=== PATIENT | male | born 1945 | race Caucasian/White ===

== ENCOUNTER 2023-05-24 08:17 | Outpatient (CLI) | payer MEDICARE, OTHER, SELFPAY | END 2023-05-24 08:18 | disposition home or self-care (01) | PROVIDERS: PCP Internal Medicine; Visit Provider Surgery | DX: I83.018 Varicose veins of right lower extremity with ulcer other part of lower leg (principal); I83.028 Varicose veins of left lower extremity with ulcer other part of lower leg; L97.811 Non-pressure chronic ulcer of other part of right lower leg limited to breakdown of skin; L97.821 Non-pressure chronic ulcer of other part of left lower leg limited to breakdown of skin; I89.0 Lymphedema, not elsewhere classified; E11.40 Type 2 diabetes mellitus with diabetic neuropathy, unspecified; Z79.4 Long term (current) use of insulin; Z79.84 Long term (current) use of oral hypoglycemic drugs | CPT/HCPCS: 97602; 99213 ==

== ENCOUNTER 2023-05-26 13:59 | Outpatient (CLI) | payer MEDICARE, OTHER, SELFPAY | END 2023-05-26 14:00 | disposition home or self-care (01) | LOC: WOUND 13:59 | PROVIDERS: PCP Internal Medicine; Visit Provider Surgery | DX: I83.028 Varicose veins of left lower extremity with ulcer other part of lower leg (principal); L97.812 Non-pressure chronic ulcer of other part of right lower leg with fat layer exposed; L97.822 Non-pressure chronic ulcer of other part of left lower leg with fat layer exposed | CPT/HCPCS: 29581 ==

== ENCOUNTER 2023-05-29 13:41 | Outpatient (CLI) | payer MEDICARE, OTHER, SELFPAY | END 2023-05-29 13:42 | disposition home or self-care (01) | LOC: WOUND 13:41 | PROVIDERS: PCP Internal Medicine; Visit Provider Surgery | DX: I83.018 Varicose veins of right lower extremity with ulcer other part of lower leg (principal); I83.028 Varicose veins of left lower extremity with ulcer other part of lower leg; L97.812 Non-pressure chronic ulcer of other part of right lower leg with fat layer exposed; L97.822 Non-pressure chronic ulcer of other part of left lower leg with fat layer exposed | CPT/HCPCS: 29581 ==

== ENCOUNTER 2023-05-31 10:13 | Outpatient (CLI) | payer MEDICARE, OTHER, SELFPAY | END 2023-05-31 10:14 | disposition home or self-care (01) | LOC: WOUND 10:13 | PROVIDERS: PCP Internal Medicine; Visit Provider Surgery | DX: I87.311 Chronic venous hypertension (idiopathic) with ulcer of right lower extremity (principal); L97.812 Non-pressure chronic ulcer of other part of right lower leg with fat layer exposed | CPT/HCPCS: 97597; 97598 ==

== ENCOUNTER 2023-06-02 14:41 | Outpatient (CLI) | payer MEDICARE, OTHER, SELFPAY | END 2023-06-02 14:42 | disposition home or self-care (01) | PROVIDERS: PCP Internal Medicine; Visit Provider Surgery | DX: I87.313 Chronic venous hypertension (idiopathic) with ulcer of bilateral lower extremity (principal); L97.812 Non-pressure chronic ulcer of other part of right lower leg with fat layer exposed; L97.822 Non-pressure chronic ulcer of other part of left lower leg with fat layer exposed | CPT/HCPCS: 29581 ==

== ENCOUNTER 2023-06-07 08:45 | Outpatient (CLI) | payer MEDICARE, OTHER, SELFPAY | END 2023-06-07 08:46 | disposition home or self-care (01) | LOC: WOUND 08:45 | PROVIDERS: PCP Internal Medicine; Visit Provider Surgery | DX: I83.018 Varicose veins of right lower extremity with ulcer other part of lower leg (principal); L97.812 Non-pressure chronic ulcer of other part of right lower leg with fat layer exposed; I83.028 Varicose veins of left lower extremity with ulcer other part of lower leg; L97.822 Non-pressure chronic ulcer of other part of left lower leg with fat layer exposed; L97.222 Non-pressure chronic ulcer of left calf with fat layer exposed; E11.40 Type 2 diabetes mellitus with diabetic neuropathy, unspecified; Z79.4 Long term (current) use of insulin; Z79.84 Long term (current) use of oral hypoglycemic drugs | CPT/HCPCS: 97597; 97598 ==

== ENCOUNTER 2023-06-09 08:39 | Outpatient (CLI) | payer MEDICARE, OTHER, SELFPAY | END 2023-06-09 08:40 | disposition home or self-care (01) | LOC: WOUND 08:39 | PROVIDERS: PCP Internal Medicine; Visit Provider Surgery | DX: I83.018 Varicose veins of right lower extremity with ulcer other part of lower leg (principal); I83.028 Varicose veins of left lower extremity with ulcer other part of lower leg; L97.812 Non-pressure chronic ulcer of other part of right lower leg with fat layer exposed; L97.822 Non-pressure chronic ulcer of other part of left lower leg with fat layer exposed | CPT/HCPCS: 29581 ==

== ENCOUNTER 2023-06-12 11:27 | Outpatient (CLI) | payer MEDICARE, OTHER, SELFPAY | END 2023-06-12 11:28 | disposition home or self-care (01) | LOC: WOUND 11:27 | PROVIDERS: PCP Internal Medicine; Visit Provider Surgery | DX: I83.018 Varicose veins of right lower extremity with ulcer other part of lower leg (principal); I83.028 Varicose veins of left lower extremity with ulcer other part of lower leg; L97.812 Non-pressure chronic ulcer of other part of right lower leg with fat layer exposed; L97.822 Non-pressure chronic ulcer of other part of left lower leg with fat layer exposed | CPT/HCPCS: 29581 ==

== ENCOUNTER 2023-06-14 10:12 | Outpatient (CLI) | payer MEDICARE, OTHER, SELFPAY | END 2023-06-14 10:13 | disposition home or self-care (01) | LOC: WOUND 10:12 | PROVIDERS: PCP Internal Medicine; Visit Provider Surgery | DX: I83.018 Varicose veins of right lower extremity with ulcer other part of lower leg (principal); L97.812 Non-pressure chronic ulcer of other part of right lower leg with fat layer exposed; I83.028 Varicose veins of left lower extremity with ulcer other part of lower leg; L97.822 Non-pressure chronic ulcer of other part of left lower leg with fat layer exposed; I87.2 Venous insufficiency (chronic) (peripheral); E11.40 Type 2 diabetes mellitus with diabetic neuropathy, unspecified; Z79.4 Long term (current) use of insulin; Z79.84 Long term (current) use of oral hypoglycemic drugs | CPT/HCPCS: 99214 ==

== ENCOUNTER 2023-06-16 14:54 | Outpatient (CLI) | payer MEDICARE, OTHER, SELFPAY | END 2023-06-16 14:55 | disposition home or self-care (01) | PROVIDERS: PCP Internal Medicine; Visit Provider Surgery | DX: I83.018 Varicose veins of right lower extremity with ulcer other part of lower leg (principal); L97.812 Non-pressure chronic ulcer of other part of right lower leg with fat layer exposed; I83.028 Varicose veins of left lower extremity with ulcer other part of lower leg; L97.822 Non-pressure chronic ulcer of other part of left lower leg with fat layer exposed | CPT/HCPCS: 29581 ==

== ENCOUNTER 2023-06-19 11:08 | Outpatient (CLI) | payer MEDICARE, OTHER, SELFPAY | END 2023-06-19 11:09 | disposition home or self-care (01) | LOC: WOUND 11:08 | PROVIDERS: PCP Internal Medicine; Visit Provider Surgery | DX: I83.028 Varicose veins of left lower extremity with ulcer other part of lower leg (principal); L97.822 Non-pressure chronic ulcer of other part of left lower leg with fat layer exposed; I83.018 Varicose veins of right lower extremity with ulcer other part of lower leg; L97.812 Non-pressure chronic ulcer of other part of right lower leg with fat layer exposed | CPT/HCPCS: 29581 ==

== ENCOUNTER 2023-06-21 08:39 | Outpatient (CLI) | payer MEDICARE, OTHER, SELFPAY | END 2023-06-21 08:40 | disposition home or self-care (01) | LOC: WOUND 08:39 | PROVIDERS: PCP Internal Medicine; Visit Provider Surgery | DX: I83.018 Varicose veins of right lower extremity with ulcer other part of lower leg (principal); L97.812 Non-pressure chronic ulcer of other part of right lower leg with fat layer exposed | CPT/HCPCS: 97597 ==

== ENCOUNTER 2023-06-23 12:43 | Outpatient (CLI) | payer MEDICARE, OTHER, SELFPAY | END 2023-06-23 12:44 | disposition home or self-care (01) | LOC: RAD 12:44 | PROVIDERS: PCP Internal Medicine; Visit Provider Internal Medicine | DX: R60.9 Edema, unspecified (principal); I51.7 Cardiomegaly; I35.1 Nonrheumatic aortic (valve) insufficiency; E11.9 Type 2 diabetes mellitus without complications | CPT/HCPCS: 93306 ==

== ENCOUNTER 2023-06-28 09:55 | Outpatient (CLI) | payer MEDICARE, OTHER, SELFPAY | END 2023-06-28 09:56 | disposition home or self-care (01) | LOC: WOUND 09:55 | PROVIDERS: PCP Internal Medicine; Visit Provider Surgery | DX: I87.2 Venous insufficiency (chronic) (peripheral) (principal); L97.812 Non-pressure chronic ulcer of other part of right lower leg with fat layer exposed | CPT/HCPCS: 97597 ==

== ENCOUNTER 2023-06-30 12:36 | Outpatient (REF) | payer MEDICARE, OTHER, SELFPAY ==
[2023-06-30 13:55] LABS: PSA Diagnostic* 0.32 ng/mL (0.10-4.00)
== END 2023-06-30 12:37 | disposition home or self-care (01) ==
LOC: NPINS 12:36
PROVIDERS: PCP Internal Medicine; Visit Provider Urology
DX: C61 Malignant neoplasm of prostate (principal)
CPT/HCPCS: 84153

== ENCOUNTER 2023-07-05 09:03 | Outpatient (CLI) | payer MEDICARE, OTHER, SELFPAY | END 2023-07-05 09:04 | disposition home or self-care (01) | LOC: WOUND 09:04 | PROVIDERS: PCP Internal Medicine; Visit Provider Surgery | DX: I87.2 Venous insufficiency (chronic) (peripheral) (principal); E11.40 Type 2 diabetes mellitus with diabetic neuropathy, unspecified; L97.812 Non-pressure chronic ulcer of other part of right lower leg with fat layer exposed; Z79.4 Long term (current) use of insulin; Z79.84 Long term (current) use of oral hypoglycemic drugs | CPT/HCPCS: 97597 ==

== ENCOUNTER 2023-07-12 09:46 | Outpatient (CLI) | payer MEDICARE, OTHER, SELFPAY | END 2023-07-12 09:47 | disposition home or self-care (01) | LOC: WOUND 09:46 | PROVIDERS: PCP Internal Medicine; Visit Provider Surgery | DX: I87.2 Venous insufficiency (chronic) (peripheral) (principal); L97.811 Non-pressure chronic ulcer of other part of right lower leg limited to breakdown of skin; L24.A9 Irritant contact dermatitis due friction or contact with other specified body fluids; E11.40 Type 2 diabetes mellitus with diabetic neuropathy, unspecified; Z79.4 Long term (current) use of insulin; Z79.84 Long term (current) use of oral hypoglycemic drugs | CPT/HCPCS: 97597 ==

== ENCOUNTER 2023-07-19 08:51 | Outpatient (CLI) | payer MEDICARE, OTHER, SELFPAY | END 2023-07-19 08:52 | disposition home or self-care (01) | LOC: WOUND 08:51 | PROVIDERS: PCP Internal Medicine; Visit Provider Family Medicine | DX: I83.018 Varicose veins of right lower extremity with ulcer other part of lower leg (principal); L97.812 Non-pressure chronic ulcer of other part of right lower leg with fat layer exposed | CPT/HCPCS: 11042 ==

== ENCOUNTER 2023-08-02 08:14 | Outpatient (CLI) | payer MEDICARE, OTHER, SELFPAY | END 2023-08-02 08:15 | disposition home or self-care (01) | PROVIDERS: PCP Internal Medicine; Visit Provider Surgery | DX: L97.811 Non-pressure chronic ulcer of other part of right lower leg limited to breakdown of skin; I83.018 Varicose veins of right lower extremity with ulcer other part of lower leg | CPT/HCPCS: 97597 ==

== ENCOUNTER 2023-08-09 08:33 | Outpatient (CLI) | payer MEDICARE, OTHER, SELFPAY | END 2023-08-09 08:34 | disposition home or self-care (01) | LOC: WOUND 08:34 | PROVIDERS: PCP Internal Medicine; Visit Provider Surgery | DX: I83.018 Varicose veins of right lower extremity with ulcer other part of lower leg (principal); L97.811 Non-pressure chronic ulcer of other part of right lower leg limited to breakdown of skin | CPT/HCPCS: 97597 ==

== ENCOUNTER 2023-08-16 10:30 | Outpatient (CLI) | payer MEDICARE, OTHER, SELFPAY | END 2023-08-16 10:31 | disposition home or self-care (01) | PROVIDERS: PCP Internal Medicine; Visit Provider Internal Medicine | DX: I10 Essential (primary) hypertension (principal); E11.9 Type 2 diabetes mellitus without complications | CPT/HCPCS: 80053; 80061; 82043; 82570 ==

== ENCOUNTER 2023-08-23 08:31 | Outpatient (CLI) | payer MEDICARE, OTHER, SELFPAY | END 2023-08-23 08:32 | disposition home or self-care (01) | LOC: WOUND 08:31 | PROVIDERS: PCP Internal Medicine; Visit Provider Surgery | DX: I87.2 Venous insufficiency (chronic) (peripheral) (principal); L97.811 Non-pressure chronic ulcer of other part of right lower leg limited to breakdown of skin | CPT/HCPCS: 97597 ==

== ENCOUNTER 2023-08-30 08:27 | Outpatient (CLI) | payer MEDICARE, OTHER, SELFPAY | END 2023-08-30 08:28 | disposition home or self-care (01) | LOC: WOUND 08:27 | PROVIDERS: PCP Internal Medicine; Visit Provider Surgery | DX: I87.2 Venous insufficiency (chronic) (peripheral) (principal); L97.818 Non-pressure chronic ulcer of other part of right lower leg with other specified severity | CPT/HCPCS: 99212 ==

== ENCOUNTER 2023-10-17 00:53 | Emergency (ER) | payer MEDICARE, OTHER, SELFPAY ==
[2023-10-17] VITALS (23 sets, daily range): BP systolic 140; BP diastolic 108–110; PULSE 70–96; RESP 20; TEMP 35.9; O2SAT 89–98
[2023-10-17 01:46] LABS: Basophils Percent Auto 0.3 % (0.0-3.0); Eosinophils Percent Auto 0.2 % (0.0-7.0); Hematocrit 43.9 % (37.0-53.0); Hemoglobin* 14.4 gm/dL (13.5-17.5); Immature Granulocytes Pct Auto 0.3 %; Lymphocytes Percent Auto 6.1 % (20-44); Mean Corpuscular HGB Conc 33 gm/dL (32-36); Mean Corpuscular Hemoglobin 26 pg (26-34); Mean Corpuscular Volume 80 fL (80-100); Monocytes Percent Auto 4.5 % (0.0-11.0); Neutrophils Percent Auto 88.6 % (42.0-72.0); Platelet Count* 361 K/uL (140-440); RDW Coefficient of Variation % 16.3 % (11.5-15.5); Red Blood Count 5.48 m/uL (4.30-5.90); White Blood Count* 16.26 K/uL (4.50-11.00)
[2023-10-17 01:48] LABS: Slide Review Reflex No
[2023-10-17 02:01] LABS: Chloride* 100 mmol/L (96-114)
[2023-10-17 02:02] LABS: Sodium* 134 mmol/L (135-149)
[2023-10-17 02:04] LABS: Creatinine* 0.9 mg/dL (0.5-1.5); Estimated Glomerular Filt Rate 87 ml/min
[2023-10-17 02:05] LABS: Anion Gap 11 mEq/L (7-15); Blood Urea Nitrogen* 24 mg/dL (7-30); Calcium* 9.8 mg/dL (8.4-10.6); Carbon Dioxide* 23 mmol/L (20-32); Glucose* 72 mg/dL (60-115)
--- NOTE | 2023-10-17 02:14 | ED.GENADULT ---
HPI - General Adult General Date Seen: 10/17/23 Chief complaint: Chest Pain Stated complaint: a fib Time Seen by Provider: 10/17/23 01:27 History of Present Illness HPI narrative: This is a pleasant 78-year-old gentleman brought to the ER today by EMS and accompanied by his from home. He has a history of insulin-dependent type 2 diabetes. Also past history of CHF, EF 45% on echo a year 2 ago, sleep apnea, GERD, hypertension,diabetic neuropathy, history of lymphedema and diabetic ulcers ( ulcers now healed) who was brought to the ER today by EMS for evaluation of a hypoglycemic episode at home as well as atrial fibrillation on his EKG. He follows with Dr. Kaur for his diabetes care. He has been working very hard since last fall to follow a strict diet and always monitor his carb counts and keep them low. He does use Lantus 44 units at night as well as fast acting insulin with meals. It sounds like his sugars have been very tightly controlled recently. He checks his sugar every morning before he eats and he has been running in the 60s for the past several days. He was in the 60s this morning. He then checks his sugar 1 additional time during the day. He did a random blood sugar about 3 year 330 this afternoon sugar was in the 60s. He has been feeling normally. No other recent illness. No fever. No cough. No sore throat. No trouble breathing. No vomiting or diarrhea. Normal appetite. He has been eating his normal meals but has been strictly controlling his carb intake. Incidentally he has lost about 20 lb since this fall because of his strict dietary control. He did eat dinner tonight. Apparently the patient and his felt like he maybe did not eat enough. He took his normal 50 units of Humalog at 7. He then took 60 units of his Lantus at 10:45 p.m.. he normally eats a granola bar or something right after takes his Lantus. Hi Found him sitting in his easy chair unresponsive. He was holding his granola bar, but had not eat yet. She could not arouse him. She called 911. Paramedics checked sugar. Initial reading was 43. They established an IV and gave him a 200 mL bolus of D10. Sugar came up to 144. Repeat glucose EN route was down to 103. It was 93 upon arrival here. Incidentally paramedics noted that he had an irregularly irregular heart rhythm. They did EKG which showed atrial fibrillation with a normal heart rate. The patient is not having any symptoms of AFib. No palpitations. No chest pain. No recent dizzy spells. No fainting. He has no known history of AFib. He is not anticoagulated. Medical record: Echocardiogram 06/23/2023 final impressions: 1. Technically limited exam. 2. Echo contrast was administered to enhance visualization of all left ventricular segments 3. Normal left ventricular size, moderately increased wall thickness, mildly reduced global systolic function, calculated EF of 44 % 4. Right ventricular cavity size is mildly enlarged, global systolic RV function is mildly reduced. 5. Severely enlarged left atrium. 6. The aortic valve is trileaflet and sclerotic, mild stenosis and trivial regurgitation. Related Data Home Medications Medication Instructions Recorded Confirmed bicalutamide 50 mg tablet 50 mg PO DAILY 05/17/23 08/16/23 pen needle, diabetic 32 gauge x #1,200 ea 05/17/23 08/16/23 (BD Ultra-Fine Irene Pen Needle) triamcinolone acetonide 0.1 % 1 applic topical BID-TID 05/17/23 08/16/23 topical cream Previous Rx's Medication Instructions Recorded insulin glargine 100 unit/mL (3 60 unit (0.6 mL) subcut DAILY #90 06/14/23 mL) subcutaneous pen (Lantus mL Solostar U-100 Insulin) furosemide 20 mg tablet 20 mg PO DAILY edema #90 tabs 07/26/23 lancets (Accu-Chek Fastclix Lancet #100 ea 07/26/23 Drum) lisinopril 40 mg tablet 40 mg PO DAILY PRN hypertension 07/26/23 #90 tabs metformin 1,000 mg tablet 1,000 mg PO BID Diabetes #180 tabs 07/26/23 blood sugar diagnostic (Accu-Chek #100 ea 08/10/23 Nati Plus test strips) hydrochlorothiazide 50 mg tablet 50 mg PO DAILY Hypertension #90 08/21/23 tabs insulin lispro 100 unit/mL 58 unit (0.58 mL) subcut BID 08/21/23 subcutaneous pen (Humalog KwikPen Diabetes #75 mL (U-100) Insulin) apixaban 5 mg tablet (Eliquis) 5 mg PO BID #60 tabs 10/17/23 Allergies Allergy/AdvReac Type Severity Reaction Status Date / Time acetaminophen [From Vicodin] Allergy Rash Verified 10/17/23 01:01 hydrocodone [From Vicodin] Allergy Rash Verified 10/17/23 01:01 adhesive tape AdvReac Unknown Rash Verified 10/17/23 01:01 [facility] Medical History (Updated 10/17/23 @ 06:29 by Isrrael Palacios MD) Congestive heart failure ?I50.9 - Heart failure, unspecified (ICD-10) Health care directive on file ?Z78.9 - Other specified health status (ICD-10) Edema ?R60.9 - Edema, unspecified (ICD-10) History of echocardiogram ?Z92.89 - Personal history of other medical treatment (ICD-10) History of bone density study ?Z92.89 - Personal history of other medical treatment (ICD-10) History of vitamin B deficiency ?Z86.39 - Personal history of other endocrine, nutritional and metabolic disease (ICD-10) History of prostate cancer ?Z85.46 - Personal history of malignant neoplasm of prostate (ICD-10) Surgical History (Updated 05/22/23 @ 11:23 by Michelle Sheehan) History of total hip arthroplasty ?Z96.649 - Presence of unspecified artificial hip joint (ICD-10) History of radical retropubic prostatectomy (1992) ?Z90.79 - Acquired absence of other genital organ(s) (ICD-10) History of total knee arthroplasty ?Z96.659 - Presence of unspecified artificial knee joint (ICD-10) History of appendectomy ?Z90.49 - Acquired absence of other specified parts of digestive tract (ICD-10) Family History (Updated 05/22/23 @ 11:08 by Michelle Sheehan) Mother High blood pressure Diabetes Father Adverse reaction to influenza vaccine Sister High blood pressure Brother High blood pressure Social History Non-prescribed substance use: denies use Little interest or pleasure in doing things: not at all Feeling down, depressed, or hopeless: not at all Exam Narrative: Exam Narrative: Constitutional: Appears well-developed and well-nourished. Alert. Conversant. Non toxic. HENT: Head: Atraumatic. Nose: Nose normal. Mouth/Throat: Oral mucosa is clear and moist. no trismus. Pharynx normal. Tonsils symmetric. No tonsillar enlargement, erythema, or exudate. Eyes: Conjunctivae normal. EOM normal. Pupils equal, round, and reactive to light. No scleral icterus. Neck: Normal range of motion. Neck supple. No tracheal deviation present. Cardiovascular: Normal rate, irregularly irregular rhythm. No gallop. No friction rub. No murmur heard. Symmetric radial artery pulses . No JVD. Pulmonary/Chest: Effort normal. No stridor. No respiratory distress. No wheezes. No rales. No rhonchi . No tenderness. Abdominal: Soft. Bowel sounds normal. No distension. No mass. No tenderness. No rebound. No guarding. Musculoskeletal: RUE: Normal range of motion. No tenderness. No deformity LUE: Normal range of motion. No tenderness. No deformity RLE: Normal range of motion. Wearing a wrap on his lower extremity.No significant edema. No tenderness. No deformity LLE: Normal range of motion. No edema. wearing a wrap on his calf.No Significanttenderness. No deformity Neurological: Alert and oriented to person, place, and time. Normal strength. CN II-VII intact. No sensory deficit. GCS eye subscore is 4. GCS verbal subscore is 5. GCS motor subscore is 6. Normal coordination Skin: Skin is warm and dry. No rash noted. No pallor. Normal capillary refill. Psychiatric: Normal mood. Normal affect. Const: Vital Signs, click to edit/add: Vital Signs - 24 hr 10/17/23 01:01 10/17/23 01:19 10/17/23 01:30 Temperature 96.6 F L Pulse Rate 85 87 Pulse Rate [Pulse Oximeter] 90 Respiratory Rate 20 Blood Pressure [[facility]] 140/108 H Pulse Oximetry 93 92 94 Oxygen Delivery Me thod Room Air 10/17/23 01:45 10/17/23 02:00 10/17/23 02:15 Temperature Pulse Rate 95 81 89 Pulse Rate [Pulse Oximeter] Respiratory Rate Blood Pressure [[facility]] Pulse Oximetry 95 95 93 Oxygen Delivery Me thod 10/17/23 02:30 10/17/23 02:45 10/17/23 03:00 Temperature Pulse Rate 79 82 75 Pulse Rate [Pulse Oximeter] Respiratory Rate Blood Pressure [[facility] Upper [facility]] Pulse Oximetry 92 92 91 Oxygen Delivery Me thod 10/17/23 03:15 10/17/23 03:52 10/17/23 04:01 Temperature Pulse Rate 76 88 85 Pulse Rate [Pulse Oximeter] Respiratory Rate Blood Pressure [[facility] Upper Arm] Pulse Oximetry 94 96 98 Oxygen Delivery Me thod 10/17/23 04:16 10/17/23 04:30 10/17/23 04:45 Temperature Pulse Rate 96 81 92 Pulse Rate [Pulse Oximeter] Respiratory Rate Blood Pressure [[facility] Upper Arm] Pulse Oximetry 94 97 89 Oxygen Delivery Me thod 10/17/23 05:01 10/17/23 05:16 10/17/23 05:31 Temperature Pulse Rate 81 83 70 Pulse Rate [Pulse Oximeter] Respiratory Rate Blood Pressure [[facility] Upper Arm] Pulse Oximetry 97 97 97 Oxygen Delivery Me thod 10/17/23 05:45 10/17/23 06:00 10/17/23 06:15 Temperature Pulse Rate 78 85 Pulse Rate [Pulse Oximeter] Respiratory Rate Blood Pressure [[facility] Upper Arm] Pulse Oximetry 96 98 95 Oxygen Delivery Me thod 10/17/23 06:30 10/17/23 06:47 Temperature Pulse Rate 82 Pulse Rate [Pulse Oximeter] Respiratory Rate Blood Pressure [[facility] Upper Arm] 140/110 H Pulse Oximetry 98 Oxygen Delivery Me thod Course Vital Signs Vital signs: Initial Vital Signs Temperature 96.6 F L 10/17/23 01:01 Temperature Source Temporal Artery Scan 10/17/23 01:01 Pulse Rate 90 10/17/23 01:01 Respiratory Rate 20 10/17/23 01:01 Blood Pressure 140/108 H 10/17/23 01:01 Blood Pressure Mean 118 H 10/17/23 01:01 Pulse Oximetry 93 10/17/23 01:01 Oxygen Delivery Method Room Air 10/17/23 01:01 Vital Signs Temperature 96.6 F L 10/17/23 01:01 Pulse Rate 90 10/17/23 01:01 Respiratory Rate 20 10/17/23 01:01 Blood Pressure 140/108 H 10/17/23 01:01 Pulse Oximetry 93 10/17/23 01:01 Oxygen Delivery Method Room Air 10/17/23 01:01 Temperature 96.6 F L 10/17/23 01:01 Pulse Rate 82 10/17/23 06:30 Respiratory Rate 20 10/17/23 01:01 Blood Pressure 140/110 H 10/17/23 06:47 Pulse Oximetry 98 10/17/23 06:30 Oxygen Delivery Method Room Air 10/17/23 01:01 Medical Decision Making MDM Narrative Medical decision making narrative: This patient presents from home by EMS with 2 separate problems. 1. Hypoglycemia. He is a insulin-dependent type 2 diabetic. He had a blood sugar low at about 43 tonight after he took normal dose of NovoLog 50 units at 7:00 p.m. and then his normal dose of Lantus 60 units at 10:45 p.m.. It sounds like he has had some low blood sugars in the morning for the past several days. Suspect that he is doing so well with his carb counting and dieting that he probably needs to decrease his doses of insulin. He is very confident that he does not inadvertently overdoses insulin. Apparently paramedics and his feel that he did not eat inadequate supper, which may be an explanation for his hyperglycemia. He is not having any other symptoms of infection, dehydration, vomiting. However white blood cell count is 16.2. chest x-ray negative for pneumonia. No UTI symptoms. We monitored he the patient here in the ER for several hours with repeat glucose checks. Glucose remained in the normal range without any recurrent low readings. He was able to tolerate oral and is keeping her sugar up. He is comfortable going home with his and she cannot the monitor his blood sugar throughout the day. He will need outpatient follow-up with primary care to adjust his insulin dose. It sounds like he has had several readings in the 60s Recently. 2. Atrial fibrillation. Patient has no known previous history of AFib. He is in AFib based on EKGs by EMS and EKG here in the ER tonight. He is rate controlled. He is asymptomatic from the AFib. no sign of CHF, ACS.Therefore we do not know exact time of onset. This is a new detection of AFib but not necessarily new onset. Due to risk of stroke, immediate cardioversion here in the ER is contraindicated. Chads 2 Vasc score is 5, indicating need for anticoagulation for stroke prophylaxis. Echo from last fall showed enlarged left atrium, moderately low ventricular EF of 44%. Also showed dilated left atrium. He remained in rate controlled AFib during his period of observation for hypoglycemia. He remains asymptomatic. He is safe for discharge home. He will a outpatient primary care and Cardiology follow-up for ongoing management. Will initiate on Eliquis for stroke prophylaxis. He will follow-up with [facility] as soon as possible. Precautions for return to the ER Reviewed. Questions answered.. Lab Data Labs: Lab Results 10/17/23 Range/Units 01:40 WBC 16.26 H (4.50-11.00) K/uL RBC 5.48 (4.30-5.90) m/uL Hgb 14.4 (13.5-17.5) gm/dL Hct 43.9 (37.0-53.0) % MCV 80 (80-100) fL MCH 26 (26-34) pg MCHC 33 (32-36) gm/dL RDW Coeff of Clemente 16.3 H (11.5-15.5) % Plt Count 361 (140-440) K/uL Neut % (Auto) 88.6 H (42.0-72.0) % Lymph % (Auto) 6.1 L (20-44) % Posey % (Auto) 4.5 (0.0-11.0) % Eos % (Auto) 0.2 (0.0-7.0) % Baso % (Auto) 0.3 (0.0-3.0) % Neut # (Auto) 14.40 H (1.7-7.0) K/uL Lymph # (Auto) 1.00 (0.90-2.90) K/uL Posey # (Auto) 0.70 (0.00-0.90) K/UL Eos # (Auto) 0.00 (0.00-0.50) K/uL Baso # (Auto) 0.00 (0.00-0.30) K/uL Abs Immat Gran (auto) 0.00 (0.00-0.30) K/uL Imm/Tot Granulo (auto) 0.3 % Sodium 134 L (135-149) mmol/L Potassium 4.0 (3.6-5.1) mmol/L Chloride 100 (96-114) mmol/L Carbon Dioxide 23 (20-32) mmol/L Anion Gap 11 (7-15) mEq/L BUN 24 (7-30) mg/dL Creatinine 0.9 (0.5-1.5) mg/dL Estimated GFR 87 ml/min Glucose 72 (60-115) mg/dL Calcium 9.8 (8.4-10.6) mg/dL TSH 1.310 (0.270-4.200) uIU/mL Imaging Data Chest x-ray: Attestation: I have reviewed the pertinent imaging results. Radiologist's impression: IMPRESSION: No acute cardiopulmonary abnormality. ECG Data Attestation: I personally reviewed and interpreted this ECG as follows: Interpretation: Atrial fibrillation. Premature ventricular or aberrantly conducted complexes. Rate 92. WA na QRS axis Low-voltage QRS. Left axis deviation. Left anterior fascicular block. ST segment/T wave: Nonspecific T-wave flattening and inversion in V6. No ST segment elevation or depression. QTc: 445 Discharge Plan Discharge Clinical Impression: Atrial fibrillation, Hypoglycemia Patient Disposition: Home, Self-Care Condition: Stable Instructions: A-fib (Atrial Fibrillation) (ED), What to Do if Your Blood Sugar is Low (ED) Additional Instructions: for your low blood sugar: Please recheck her blood sugar again this morning and again this afternoon. Please try to eat regular food and plenty of carbs To keep her blood sugar above 80. please follow-up with your regular doctor as soon as possible to adjust your insulin doses. for atrial fibrillation: Please call [facility] at [phone] to schedule a follow-up appointment. Also please follow-up with your regular doctor, Dr. Kaur to recheck for your AFib. Please start on the blood thinning medications to minimize the risk for strokes. If the medication is too expensive, contact your doctor for a different prescription. return to the ER immediately if you have palpitations, chest pain, dizzy spells, fainting, trouble breathing, or any other concerns. Prescriptions: New Eliquis 5 mg tablet 5 mg PO BID Qty: 60 0RF No Action bicalutamide 50 mg tablet 50 mg PO DAILY (DME) pen needle, diabetic [BD Ultra-Fine Irene Pen Needle] 32 gauge x 5/32 needle See Rx Instructions .ROUTE .MEDSUPPLY Qty: 1200 Patient Comments: [NO ORIGINAL SIG] Rx Instructions: As directed triamcinolone acetonide 0.1 % cream 1 applic topical BID-TID insulin glargine [Lantus Solostar U-100 Insulin] 100 unit/mL (3 mL) insulin pen 60 unit subcut DAILY Qty: 90 1RF (DME) lancets [Accu-Chek Fastclix Lancet Drum] Misc See Rx Instructions .ROUTE BID Qty: 100 3RF Rx Instructions: As directed furosemide 20 mg tablet 20 mg PO DAILY Qty: 90 3RF lisinopril 40 mg tablet 40 mg PO DAILY PRN (Reason: hypertension) Qty: 90 3RF metformin 1,000 mg tablet 1,000 mg PO BID Qty: 180 3RF (DME) Accu-Chek Nati Plus test strp Strip See Rx Instructions .ROUTE .COMPLEX Qty: 100 7RF Dose Instruction: USE TWO TIMES A DAY Rx Instructions: USE TWO TIMES A DAY hydrochlorothiazide 50 mg tablet 50 mg PO DAILY Qty: 90 3RF insulin lispro [Humalog KwikPen Insulin] 100 unit/mL insulin pen 58 unit subcut BID Qty: 75 3RF Follow Up/Referrals: Lavelle Kaur MD [Primary Care Provider] - Stand Alone Forms: [employer] Info Instructions
--- NOTE | 2023-10-17 02:51 | CRLHL7_ITS ---
For Patients: As a result of the Cures Act, medical imaging exams and procedure reports are released immediately into your electronic medical record. You may view this report before your referring provider. If you have questions, please contact your health care provider. INDICATION: AFib, hypoglycemia. TECHNIQUE: Chest 2 views. COMPARISON: None. FINDINGS: Cardiovascular and mediastinum: Heart size and vasculature are normal in caliber and appearance. Lungs and pleural spaces: Lungs are clear. No sign of infiltrate or mass. No sign of pleural effusion. No pneumothorax. Bones and soft tissues: No significant findings. IMPRESSION: No acute cardiopulmonary abnormality. Dictated by Valentin Bundy MD @ 10/17/2023 3:47:12 AM (Electronically Signed)
[2023-10-19 14:48] LABS: Glucose, Point-of-Care* 64 mg/dl (60-115)
[2023-10-19 14:49] LABS: Glucose, Point-of-Care* 136 mg/dl (60-115)
== END 2023-10-17 06:35 | disposition home or self-care (01) ==
PROVIDERS: Emergency Provider Emergency Medicine; PCP Internal Medicine
DX: I48.91 Unspecified atrial fibrillation (principal); E16.2 Hypoglycemia, unspecified
CPT/HCPCS: 36415; 71046; 80048; 81001; 82947; 82962; 84443; 85025; 93005; 99284; 99285

== ENCOUNTER 2023-11-28 09:45 | Outpatient (RCR) | payer MEDICARE, OTHER, SELFPAY ==
--- NOTE | 2023-08-31 12:51 | OT.OPLE ---
OT Outpatient Lymphedema Eval OT Outpatient Lymphedema Eval Start: 08/31/23 09:16 Freq: Status: Active Protocol: Document 08/31/23 09:17 BRIEN (Rec: 08/31/23 12:37 BRIEN [email or web address]) E-signed By Regla Lin, OTR/L, CLT OT Outpatient Evaluation Details Type Type Eval Complexity Medium OT OP Lymphedema Evaluation Insurance Information Insurance Information [employer] Insurance Information Comments [facility], [employer] [facility], Group 1-card is scanned in the chart Current Condition/Medical Diagnosis Referring Provider Leighann Carroll NP Treatment Diagnosis R60.9 - Edema, unspecified; M62.81 Muscle Weakness Date Of Onset 04/06/23 Medical Contraindications DM,HTN,CA,Metal Implants, Arthritis,Latex Allergy Current Work Status Current Work Status Retired Current Work Status Comments 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 Personal history of other endocrine, nutritional and metabolic disease (ICD-10) ANNA (obstructive sleep apnea) -Obstructive sleep apnea ( adult) (pediatric) (ICD-10) GERD (gastroesophageal reflux disease) (Chronic) with Hiatal Hernia and hx esophageal ulcer. Gastro-esophageal reflux disease without esophagitis ( ICD-10) Venous stasis ulcer (Chronic)- Numerous with wound drainage. Varicose veins of unspecified lower extremity with ulcer of unspecified site (ICD-10) Non-pressure chronic ulcer of unspecified part of unspecified lower leg with unspecified severity (ICD-10) Venous stasis dermatitis of both lower extremities ( Chronic) Hx cellulitis ~2x/ year. Most recent 05/2023. See scanned Clinic records. Venous insufficiency (chronic) (peripheral) (ICD-10) Diabetic neuropathy (Chronic) Type 2 diabetes mellitus with diabetic neuropathy, unspecified (ICD-10) Hypertension (Chronic) Surgical History Surgical History 5 years of Radiation following his prostate cancer surgery- History of radical retropubic prostatectomy (1992) History of total hip arthroplasty History of total knee arthroplasty History of appendectomy- Acquired absence of other specified parts of digestive tract (ICD-10) Medications Medications bicalutamide 50 mg PO DAILY blood sugar diagnostic (Accu- Chek Nati Plus test strips) USE TWO TIMES A DAY furosemide 20 mg PO DAILY hydrochlorothiazide 50 mg PO DAILY insulin glargine (Lantus Solostar U-100 Insulin) 60 units (0.6 mL) subcut DAILY insulin lispro (Humalog KwikPen (U-100) Insulin) subcut lancets (Accu-Chek Fastclix Lancet Drum) As directed lisinopril 40 mg PO DAILY PRN metformin 1,000 mg PO BID pen needle, diabetic (BD Ultra -Fine Irene Pen Needle) As directed triamcinolone acetonide 0.1% 1 applic topical BID-TID Contraindications Contraindications General Contraindications Comments His congestive heart failure with ejection fraction 44%. Family History Family History of Lymphedema No Living Situation Current Living Situation Home With Spouse Or SO Patient Difficulties Difficulties With Any Of The Following Walking,Dressing,Reaching Feet & Toes,Bathing/Showering Patient Difficulties Comments Patient sleeps in a recliner due to the COPD donns his velcro wraps daily provides assistance 1x/ week for a full shower Exercise History Does Patient Exercise Regularly No Exercise Comments [employer]-stationary bike ( GOAL is 1x/week)-usually right now its every other week, goal is 30 mins but today on EVAL, patient only able to ride the NuStep for 5 mins- very decondiioned Pain Pain No Loss of Function/Strength/Mobility Loss Of Function/Strength/Mobility Yes Loss Of Function/Strength/Mobility Patient uses a 4WW for all Comments ambulation. Very poor endurance. Patient did 5 mins on the NuStep to test his endurance starting at level 4, needed to move down to level 3 after just 2 mins, then down to level 2 after 3 mins. Patient was able to maintain an average step per minute of 84 BUT, after 5 mins of exercise HR was 142 bpm and BP was 169/ 105, oxygen 93% on RA After a 5 min seated rest break, vitals: 131/94, HR 83 and oxygen 96%. Patient did not report any feeling of being dizzy or lightheaded but rated the activity as VERY taxing and admitted to being out of shape Previous Treatment Previous Treatment For Swelling/ Multi-Layer Compression Lymphedema Bandages Previous Treatment/Current Home Program Patient just completed care at the wound care clinic where they use a 2-layer Coban system All wounds are closed and healed now, he is wearing Velcro wraps to bilateral LE's (this is new to him) Compression History Does Patient Currently Wear Compression Yes During Daytime Does Patient Currently Wear Compression Yes At Night Compression At Night Comments Patient wears the same compression day/night Current Swelling (Location/Pitting/Texture) Pitting Scale: 0 = No pitting 1+ Tissue returns to normal almost immediately 2+ Tissue returns after 15-30 seconds 3+ Tissue returns after 1-1/2 minutes 4+ Tissue returns after 2-3 minutes N/A Tissue no longer pits due to induration Tissue texture: Soft or indurated Clinical Presentation Area +3 pitting along the upper portion of the lower leg ( closer to the knee) Clinical Presentation Texture Patient had multiple open ulcers, but these have now closed up and healed, patient' s last visit at the wound care clinic was 08/30/23 Type of Swelling Secondary Staging Staging Stage 2 Circumferential Measurements Lower Extremity Left Lower Extremity Great Toe 10.4 MPT 25.4 Arch 26 Calcaneous 27.6 10cm 29 20cm 37 30cm 45.5 40cm 49 Total 249.9 Right Lower Extremity Great Toe 9.9 MPT 25.3 Arch 26.2 Calcaneous 27 10cm 27 20cm 40 30cm 45.5 40cm 44.4 Total 245.3 Assessment Assessment This is a pleasant 78-year-old male patient referred to skilled OT from the wound care clinic for LE edema after patient was treated for an open venous leg ulcer on the R LE. PMH includes but is not limited to: cataracts, sleep apnea, HTN, Peripheral venous disease, Type II Diabetes, Neuropathy, vitamin B deficiency, GERD, history of Cellulitis & congestive heart failure with ejection fraction 44%. Patient has never been seen for this diagnosis/never been seen by a Lymphedema Therapist in the past and was given a folder with educational materials including Nutrition, Lymphedema Risk Factors, Optimal Skin Hygiene, How to prevent infection, & Self- Massage Drainage. Patient was pleasant, alert, orientated, asked great questions in session, was an active listener to information presented to him and showed signs of motivation/ willingness to follow the presented protocol in POC. Therapist took measurements of bilateral LE's and explained to patient what would occur in the next 4 sessions. PLAN: modified manual lymph drainage, teach patient self- massage techniques, customize a home exercise program that fits the needs and ability of patient. Impairments Impairments Loss of Mobility,Difficulties With ADLs,Limb Heaviness,Poor Clothing Fit Problem List Problem List Limited Knowledge of Lymphedema Treatment/Condition /Precautions,Limited Knowledge of Skin Care & Infection Precautions,Significant Risk For Infection For Lymphedema Related Complications,Does Not Have a HEP,Presents With Increased Fall Risk Secondary To Lymphedema,Presents With Impaired Mobility/ROM Patient Goals Patient Goals My main goal is to not open up with any more wounds on my legs-I don't want to return to the wound care clinic I know I need to lose more weight and get healthier; I already met with a core cutter and have a goal to lose 1 lb per week Click To Default Short Term Goals Standard Goals Short Term Goals Goal 1: Patient will understand lymphedema precautions to decrease risk of infection and further lymphedema related complications Goal 2: Patient will experience decreased pitting edema in order to improve tissue health and decrease risk for infection/cellulitis Goal 3: Patient will perform HEP with minimal assistance in order to improve lymphatic flow and venous return Click To Default Director [employer] Goals Standard Goals Longterm Goals Goal 4: Patient will experience increased ROM and mobility in order to improve safety and independence with transfers and mobility Goal 5: Patient will achieve bilateral reduction of cms from total measurements to enable functional improvements such as fitting into standard sized clothing and shoes, return to a prior level of functional mobility, improved balance, and reduced risk of falling. Goal 6: To demonstrate an improvement in overall health and fitness level, patient will be able to exercise on the NuStep using all 4 limbs, keeping an average pace of >75 steps per minute on level 2 w /o blood pressure > 20mmHg from baseline recording. Treatment Plan Treatment Plan Evaluation,Edema Control,Joint Mobilization,Manual Therapy, Wound Care/Scar Management, Therapeutic Exercise,Self-Care /Home Management,Caregiver Training,Education Expected Frequency 1-2x Week Expected Duration 8-10 Weeks Certification Certification I Certify That: Therapy Services Provided, Therapy Plan Established, Therapy Plan Reviewed Recertification Information Recertification Information Initial Certification Date 08/31/23 Recertification Due Date 11/29/23 Provider Signature Shows Agreement With POC & Medical Necessity Physician Comment/Change Comment or Changes Physician NPI Number #
== END 2023-11-28 14:19 | disposition home or self-care (01) ==
PROVIDERS: PCP Internal Medicine; Visit Provider Nurse Practitioner Family
DX: I89.0 Lymphedema, not elsewhere classified (principal); R60.9 Edema, unspecified; M62.81 Muscle weakness (generalized); Z51.89 Encounter for other specified aftercare
CPT/HCPCS: 97110; 97140; 97166; X5282

== ENCOUNTER 2024-01-09 15:56 | Outpatient (REF) | payer MEDICARE, OTHER, SELFPAY ==
[2024-01-09 17:30] LABS: PSA Screen* < 0.06 ng/mL (0.10-4.00)
== END 2024-01-09 15:57 | disposition home or self-care (01) ==
LOC: NPINS 15:56
PROVIDERS: PCP Internal Medicine; Visit Provider Urology
DX: C61 Malignant neoplasm of prostate (principal)
CPT/HCPCS: G0103

== ENCOUNTER 2024-07-19 12:32 | Outpatient (REF) | payer MEDICARE, OTHER, SELFPAY ==
[2024-07-19 13:54] LABS: PSA Diagnostic* < 0.06 ng/mL (0.10-4.00)
== END 2024-07-19 12:33 | disposition home or self-care (01) ==
LOC: NPINS 12:32
PROVIDERS: PCP Internal Medicine; Visit Provider Urology
DX: C61 Malignant neoplasm of prostate (principal)
CPT/HCPCS: 84153

== ENCOUNTER 2025-01-22 09:11 | Outpatient (CLI) | payer MEDICARE, OTHER, SELFPAY | END 2025-01-22 09:12 | disposition home or self-care (01) | LOC: NFLDREF 01-23 22:52 | PROVIDERS: PCP Internal Medicine; Referring Provider Internal Medicine; Visit Provider Internal Medicine | DX: I10 Essential (primary) hypertension (principal); E11.49 Type 2 diabetes mellitus with other diabetic neurological complication; I50.9 Heart failure, unspecified; Z79.4 Long term (current) use of insulin | CPT/HCPCS: 80053; 80061; 82043; 82570 ==

== ENCOUNTER 2025-01-24 10:00 | Outpatient (CLI) | payer MEDICARE, OTHER, SELFPAY ==
[2025-01-27 04:31] LABS: Prostate Specific Antigen Free <0.1 ng/mL; Prostate Specific AntigenTotal <0.1 ng/mL (0.0-4.0)
== END 2025-01-24 10:01 | disposition home or self-care (01) ==
LOC: NPINS 10:01
PROVIDERS: PCP Internal Medicine; Visit Provider Urology
DX: C61 Malignant neoplasm of prostate (principal); Z90.79 Acquired absence of other genital organ(s); I11.0 Hypertensive heart disease with heart failure; I50.9 Heart failure, unspecified; E11.41 Type 2 diabetes mellitus with diabetic mononeuropathy; Z79.4 Long term (current) use of insulin; I48.91 Unspecified atrial fibrillation
CPT/HCPCS: 84153; 84154

== ENCOUNTER 2025-03-10 09:26 | Outpatient (CLI) | payer MEDICARE, OTHER, SELFPAY | END 2025-03-10 09:27 | disposition home or self-care (01) | LOC: WOUND 09:30 | PROVIDERS: PCP Internal Medicine; Visit Provider Physician Assistant | DX: S81.002A Unspecified open wound, left knee, initial encounter (principal); E11.9 Type 2 diabetes mellitus without complications; I10 Essential (primary) hypertension; Z79.4 Long term (current) use of insulin; Z79.84 Long term (current) use of oral hypoglycemic drugs; I48.91 Unspecified atrial fibrillation | CPT/HCPCS: G0463 ==

== ENCOUNTER 2025-03-18 10:50 | Outpatient (CLI) | payer MEDICARE, SELFPAY | END 2025-03-18 10:51 | disposition home or self-care (01) | LOC: WOUND 10:50 | PROVIDERS: PCP Internal Medicine; Visit Provider Nurse Practitioner Family | DX: S80.212A Abrasion, left knee, initial encounter (principal); I87.2 Venous insufficiency (chronic) (peripheral); E11.9 Type 2 diabetes mellitus without complications; I10 Essential (primary) hypertension; I48.91 Unspecified atrial fibrillation; Z79.4 Long term (current) use of insulin; Z79.84 Long term (current) use of oral hypoglycemic drugs | CPT/HCPCS: G0463 ==

== ENCOUNTER 2025-03-25 10:42 | Outpatient (CLI) | payer MEDICARE, SELFPAY | END 2025-03-25 10:43 | disposition home or self-care (01) | LOC: WOUND 10:42 | PROVIDERS: PCP Internal Medicine; Visit Provider Physician Assistant | DX: S61.511A Laceration without foreign body of right wrist, initial encounter (principal); W23.0XXA Caught, crushed, jammed, or pinched between moving objects, initial encounter; Y92.22 Religious institution as the place of occurrence of the external cause; S80.212A Abrasion, left knee, initial encounter | CPT/HCPCS: 97597 ==

== ENCOUNTER 2025-04-02 10:15 | Outpatient (CLI) | payer MEDICARE, SELFPAY | END 2025-04-02 10:16 | disposition home or self-care (01) | LOC: WOUND 10:16 | PROVIDERS: PCP Internal Medicine; Visit Provider Physician Assistant | DX: S61.511A Laceration without foreign body of right wrist, initial encounter (principal); S80.212A Abrasion, left knee, initial encounter; I87.2 Venous insufficiency (chronic) (peripheral); I10 Essential (primary) hypertension; E11.9 Type 2 diabetes mellitus without complications; Z79.4 Long term (current) use of insulin | CPT/HCPCS: 97597 ==

== ENCOUNTER 2025-04-08 10:41 | Outpatient (CLI) | payer MEDICARE, SELFPAY | END 2025-04-08 10:42 | disposition home or self-care (01) | LOC: WOUND 10:42 | PROVIDERS: PCP Internal Medicine; Visit Provider Nurse Practitioner Family | DX: S80.212A Abrasion, left knee, initial encounter (principal); I87.2 Venous insufficiency (chronic) (peripheral); E11.9 Type 2 diabetes mellitus without complications; I10 Essential (primary) hypertension; Z79.4 Long term (current) use of insulin | CPT/HCPCS: 11042 ==

== ENCOUNTER 2025-04-15 10:37 | Outpatient (CLI) | payer MEDICARE, OTHER, SELFPAY | END 2025-04-15 10:38 | disposition home or self-care (01) | LOC: WOUND 10:38 | PROVIDERS: PCP Internal Medicine; Visit Provider Nurse Practitioner Family | DX: I87.2 Venous insufficiency (chronic) (peripheral) (principal); L97.822 Non-pressure chronic ulcer of other part of left lower leg with fat layer exposed; E11.9 Type 2 diabetes mellitus without complications; I48.91 Unspecified atrial fibrillation; Z79.01 Long term (current) use of anticoagulants; Z79.4 Long term (current) use of insulin; Z79.84 Long term (current) use of oral hypoglycemic drugs | CPT/HCPCS: 11042 ==

== ENCOUNTER 2025-04-22 10:46 | Outpatient (CLI) | payer MEDICARE, SELFPAY | END 2025-04-22 10:47 | disposition home or self-care (01) | LOC: WOUND 10:47 | PROVIDERS: PCP Internal Medicine; Visit Provider Nurse Practitioner Family | DX: I87.2 Venous insufficiency (chronic) (peripheral) (principal); L97.822 Non-pressure chronic ulcer of other part of left lower leg with fat layer exposed; E11.9 Type 2 diabetes mellitus without complications; I48.91 Unspecified atrial fibrillation; Z79.4 Long term (current) use of insulin; Z79.84 Long term (current) use of oral hypoglycemic drugs | CPT/HCPCS: 11042 ==

== ENCOUNTER 2025-05-06 10:43 | Outpatient (CLI) | payer MEDICARE, SELFPAY | END 2025-05-06 10:44 | disposition home or self-care (01) | LOC: WOUND 10:43 | PROVIDERS: PCP Internal Medicine; Visit Provider Nurse Practitioner Family | DX: I87.2 Venous insufficiency (chronic) (peripheral) (principal); L97.822 Non-pressure chronic ulcer of other part of left lower leg with fat layer exposed; E11.9 Type 2 diabetes mellitus without complications; Z79.4 Long term (current) use of insulin; Z79.84 Long term (current) use of oral hypoglycemic drugs | CPT/HCPCS: 11042 ==

== ENCOUNTER 2025-05-20 09:00 | Outpatient (CLI) | payer MEDICARE, SELFPAY | END 2025-05-20 09:01 | disposition home or self-care (01) | LOC: WOUND 09:00 | PROVIDERS: PCP Internal Medicine; Visit Provider Nurse Practitioner Family | DX: I87.2 Venous insufficiency (chronic) (peripheral) (principal); L97.822 Non-pressure chronic ulcer of other part of left lower leg with fat layer exposed; I10 Essential (primary) hypertension; I48.91 Unspecified atrial fibrillation; E11.9 Type 2 diabetes mellitus without complications; Z79.4 Long term (current) use of insulin; Z79.84 Long term (current) use of oral hypoglycemic drugs | CPT/HCPCS: 11042 ==

== ENCOUNTER 2025-05-27 08:46 | Outpatient (CLI) | payer MEDICARE, OTHER, SELFPAY | END 2025-05-27 08:47 | disposition home or self-care (01) | LOC: WOUND 08:46 | PROVIDERS: PCP Internal Medicine; Visit Provider Nurse Practitioner Family | DX: I87.2 Venous insufficiency (chronic) (peripheral) (principal); L97.822 Non-pressure chronic ulcer of other part of left lower leg with fat layer exposed; E11.9 Type 2 diabetes mellitus without complications; I10 Essential (primary) hypertension; I48.91 Unspecified atrial fibrillation; Z79.4 Long term (current) use of insulin; Z79.84 Long term (current) use of oral hypoglycemic drugs | CPT/HCPCS: G0463 ==

== ENCOUNTER 2025-06-03 08:57 | Outpatient (CLI) | payer MEDICARE, OTHER, SELFPAY | END 2025-06-03 08:58 | disposition home or self-care (01) | LOC: WOUND 08:57 | PROVIDERS: PCP Internal Medicine; Visit Provider Nurse Practitioner Family | DX: I89.0 Lymphedema, not elsewhere classified (principal); I87.2 Venous insufficiency (chronic) (peripheral); E11.9 Type 2 diabetes mellitus without complications; Z79.4 Long term (current) use of insulin; Z79.84 Long term (current) use of oral hypoglycemic drugs | CPT/HCPCS: G0463 ==

== ENCOUNTER 2025-07-30 09:14 | Outpatient (CLI) | payer MEDICARE, SELFPAY ==
[2025-07-30 12:21] LABS: PSA Screen* < 0.06 ng/mL (0.10-4.00)
== END 2025-07-30 09:15 | disposition home or self-care (01) ==
LOC: NPINS 09:15
PROVIDERS: PCP Internal Medicine; Visit Provider Urology
DX: C61 Malignant neoplasm of prostate (principal)
CPT/HCPCS: G0103